=== PATIENT | female | born 1965 | race African-American/Black ===

== ENCOUNTER 2017-07-12 11:25 | Inpatient (IN) | payer MEDICAID ==
[~2017-07-12] VITALS: Ht 165.1 cm; Wt 117.1 kg
[2017-07-12] MEDS ORDERED: SODIUM CHLORIDE 0.9% 1,000 ML IV ONE ×2 (11:36→12:30)
[2017-07-12] MEDS ORDERED: FAMOTIDINE 20 MG/2 ML ONE (11:52)
[2017-07-12] MEDS ORDERED: SODIUM CHLORIDE 0.9% 1,000ML IVBOLUS ONE ×2 (12:00→12:30)
[2017-07-12] MEDS ORDERED: SODIUM CHLORIDE FLUSH 10ML SYR IVF ONE (12:00)
[2017-07-12] MEDS ORDERED: PLEASE ENTER HEIGHT AND WEIGHT MC SCH (12:00)
[2017-07-12] MEDS ORDERED: FAMOTIDINE 20 MG/2 ML IVP ONE (12:00)
[2017-07-12] MEDS ORDERED: PLEASE ENTER ALLERGIES MC SCH (12:00)
[2017-07-12 12:10] LABS: MEAN CORPUSCULAR HEMOGLOBIN 31.3 pg (27.0-34.8); MEAN CORPUSCULAR HGB CONC 33.9 g/dL (32.4-35.8); MEAN CORPUSCULAR VOLUME 92.4 fL (80-100); MEAN PLATELET VOLUME 11.2 fL (7.4-10.4); PLATELET COUNT 167 x10^3/uL (130-400); RED BLOOD COUNT 5.04 x10^6/uL (3.82-5.3); RED CELL DISTRIBUTION WIDTH 12.6 % (9.6-15.2)
[2017-07-12 12:17] LABS: ALANINE AMINOTRANSFERASE 54 U/L (12-78); ALBUMIN 3.9 g/dL (3.4-5.0); ANION GAP 10 mmol/L (5-15); CALCIUM 9.6 mg/dL (8.5-10.1); CHLORIDE 98 mmol/L (98-107); CREATININE 1.07 mg/dL (0.55-1.02)
[2017-07-12 12:21] LABS: ALKALINE PHOSPHATASE 106 U/L (45-117); BILIRUBIN,TOTAL 0.9 mg/dL (0.2-1.0); TROPONIN I < 0.015 ng/mL (0.000-0.045)
[2017-07-12 12:22] LABS: ACETONE, SERUM Negative (Negative)
[2017-07-12 12:26] LABS: MICROSCOPIC NOT IND
[2017-07-12 12:27] LABS: FREE T4 (FREE THYROXINE) 1.46 ng/dL (0.76-1.46)
[2017-07-12 12:28] LABS: CULTURE INDICATED? NO
[2017-07-12] MEDS ORDERED: INSULIN REGULAR 100 UNITS/ML, 3ML VIAL IVPush ONE (12:30)
[2017-07-12 12:44] LABS: MD YES
[2017-07-12 12:51] LABS: EOS#(MANUAL) 0.11 x10^3/uL (0.0-0.4); EOS% (MANUAL) 2 % (1-7); LYMPH#(MANUAL) 3.59 x10^3/uL (1-3.4); LYMPHS% (MANUAL) 63 % (22-44); MONOS#(MANUAL) 0.34 x10^3/uL (0.3-2.7); MONOS% (MANUAL) 6 % (2-9); REACTIVE LYMPHS % (MANUAL) 7 % (0-0); SEG#(MANUAL) 1.25 x10^3/uL (1.8-6.8); SEGS% (MANUAL) 22 % (42-75)
[2017-07-12 12:52] LABS: <PLATELET ESTIMATE> ADEQUATE; <RBC MORPHOLOGY> NORMAL; LARGE PLATELETS 2+
[2017-07-12] MEDS ORDERED: GABA400C PO (13:35)
[2017-07-12] MEDS ORDERED: GLYB2.5T2 PO (13:35)
[2017-07-12] MEDS ORDERED: INSULIN SC (13:35)
[2017-07-12 16:18] VITALS: BP 84/64
[2017-07-12 16:22] VITALS: BP 97/66
[2017-07-12] MEDS ORDERED: PNEUMOCOCCAL VACC.PER PHARMACY IM ONE (17:00)
[2017-07-12] MEDS: GABAPENTIN 400 MG CAPSULE PO SCH ×2 (18:00→20:12)
[2017-07-12] MEDS ORDERED: ENALAPRILAT 1.25 MG/ML, 2ML IVPush PRN (18:00)
[2017-07-12] MEDS ORDERED: PROMETHAZINE 25 MG/ML, 1ML IM PRN (18:00)
[2017-07-12] MEDS ORDERED: POLYETHYLENE GLYCOL 17 GM PACKET PO PRN (18:00)
[2017-07-12] MEDS ORDERED: BISACODYL 10 MG SUPP PR PRN (18:00)
[2017-07-12] MEDS ORDERED: morphine SULFATE 10 MG/ML, 1ML IVPush PRN (18:00)
[2017-07-12] MEDS ORDERED: ONDANSETRON ODT 4 MG PO PRN (18:00)
[2017-07-12] MEDS ORDERED: hydrALAzine 20 MG/ML, 1ML IVPush PRN (18:00)
[2017-07-12] MEDS ORDERED: ACETAMINOPHEN 325 MG TABLET PO PRN (18:00)
[2017-07-12] MEDS: INSULIN LISPRO 100 UNITS/ML, PEN SQ-INSULIN SCH ×2 (18:00→20:33)
[2017-07-12] MEDS ORDERED: ONDANSETRON 2MG/ML, 2ML IVPush PRN (18:00)
[2017-07-12 18:29] LABS: FREE T4 (FREE THYROXINE) 1.39 ng/dL (0.76-1.46)
[2017-07-12 18:55] LABS: HEMOGLOBIN A1C 12.5 % (4.2-6.3)
[2017-07-12 20:00] VITALS: BP 116/80
[2017-07-12] MEDS: NICOTINE 7 MG/24 HR PATCH.TD24 TD SCH (20:12)
[2017-07-12] MEDS: HEPARIN 5,000 UNITS/ML, 1ML SQ SCH (20:12)
[2017-07-12] MEDS: ASPIRIN 81 MG TABLET EC PO SCH (20:12)
[2017-07-12] MEDS: SODIUM CHLORIDE 0.9% 1,000 ML IV SCH (20:33)
[2017-07-12] MEDS: INSULIN GLARGINE 100 UNITS/ML, PEN SQ-INSULIN SCH (20:33)
[2017-07-12 22:30] LABS: TROPONIN I < 0.015 ng/mL (0.000-0.045)
[2017-07-13 01:36] VITALS: BP 116/80
[2017-07-13] MEDS: SODIUM CHLORIDE 0.9% 1,000 ML IV SCH ×2 (05:05→11:35)
[2017-07-13] MEDS: ASPIRIN 81 MG TABLET EC PO SCH (05:05)
[2017-07-13] MEDS: HEPARIN 5,000 UNITS/ML, 1ML SQ SCH ×3 (05:05→20:21)
[2017-07-13 05:14] LABS: MEAN CORPUSCULAR HEMOGLOBIN 31.8 pg (27.0-34.8); MEAN CORPUSCULAR HGB CONC 33.9 g/dL (32.4-35.8); MEAN CORPUSCULAR VOLUME 93.8 fL (80-100); MEAN PLATELET VOLUME 10.8 fL (7.4-10.4); PLATELET COUNT 145 x10^3/uL (130-400); RED BLOOD COUNT 4.41 x10^6/uL (3.82-5.3); RED CELL DISTRIBUTION WIDTH 12.2 % (9.6-15.2)
[2017-07-13 05:18] LABS: ALBUMIN 3.1 g/dL (3.4-5.0); ANION GAP 6 mmol/L (5-15); CALCIUM 8.3 mg/dL (8.5-10.1); CHLORIDE 106 mmol/L (98-107)
[2017-07-13 05:24] LABS: ALANINE AMINOTRANSFERASE 44 U/L (12-78); ALKALINE PHOSPHATASE 81 U/L (45-117); BILIRUBIN,TOTAL 0.8 mg/dL (0.2-1.0); CHOL/HDL RATIO 2.8; CHOLESTEROL, TOTAL 82 mg/dL (140-239); CREATININE 0.69 mg/dL (0.55-1.02); HDL CHOL % 35 % (28-40); HDL CHOLESTEROL (DIRECT) 29 mg/dL (40-60); LDL CHOLESTEROL,CALCULATED 37 mg/dL (54-169); LDL/HDL RATIO 1.3 (0.5-3.0); TOTAL PROTEIN 7.3 g/dL (6.4-8.2); TRIGLYCERIDES 79 mg/dL (50-200); TROPONIN I < 0.015 ng/mL (0.000-0.045); VLDL CHOLESTEROL 16 mg/dL (0-25)
[2017-07-13 06:16] LABS: MD YES
[2017-07-13 06:21] LABS: <PLATELET ESTIMATE> ADEQUATE; <RBC MORPHOLOGY> NORMAL; BASOS#(MANUAL) 0.05 x10^3/uL (0-0.1); BASOS% (MANUAL) 1 % (0-1); EOS#(MANUAL) 0.15 x10^3/uL (0.0-0.4); EOS% (MANUAL) 3 % (1-7); LARGE PLATELETS 1+; LYMPHS% (MANUAL) 60 % (22-44); MONOS#(MANUAL) 0.25 x10^3/uL (0.3-2.7); MONOS% (MANUAL) 5 % (2-9); SEG#(MANUAL) 1.55 x10^3/uL (1.8-6.8); SEGS% (MANUAL) 31 % (42-75)
[2017-07-13 07:51] VITALS: BP 130/81
[2017-07-13] MEDS: SENNA/DOCUSATE TABLET PO SCH (10:16)
[2017-07-13] MEDS: GABAPENTIN 400 MG CAPSULE PO SCH ×3 (10:16→20:20)
[2017-07-13] MEDS: INSULIN GLARGINE 100 UNITS/ML, PEN SQ-INSULIN SCH ×2 (10:17→20:34)
[2017-07-13] MEDS: INSULIN LISPRO 100 UNITS/ML, PEN SQ-INSULIN SCH ×4 (10:18→20:34)
[2017-07-13 14:00] VITALS: BP 106/70
[2017-07-13 20:00] VITALS: BP 120/77
[2017-07-13] MEDS: NICOTINE 7 MG/24 HR PATCH.TD24 TD SCH (20:30)
[2017-07-13] MEDS ORDERED: ATORVASTATIN 20 MG TABLET PO SCH (21:00)
[2017-07-14 02:00] VITALS: BP 112/81
[2017-07-14] MEDS: HEPARIN 5,000 UNITS/ML, 1ML SQ SCH ×2 (03:24→12:00)
[2017-07-14 04:57] LABS: MEAN CORPUSCULAR HEMOGLOBIN 31.7 pg (27.0-34.8); MEAN CORPUSCULAR HGB CONC 33.6 g/dL (32.4-35.8); MEAN CORPUSCULAR VOLUME 94.2 fL (80-100); MEAN PLATELET VOLUME 10.9 fL (7.4-10.4); PLATELET COUNT 149 x10^3/uL (130-400); RED BLOOD COUNT 4.32 x10^6/uL (3.82-5.3); RED CELL DISTRIBUTION WIDTH 12.8 % (9.6-15.2)
[2017-07-14 05:40] LABS: MD YES
[2017-07-14 05:43] LABS: EOS#(MANUAL) 0.18 x10^3/uL (0.0-0.4); EOS% (MANUAL) 4 % (1-7); LYMPH#(MANUAL) 2.94 x10^3/uL (1-3.4); LYMPHS% (MANUAL) 64 % (22-44); MONOS#(MANUAL) 0.28 x10^3/uL (0.3-2.7); MONOS% (MANUAL) 6 % (2-9); SEGS% (MANUAL) 26 % (42-75)
[2017-07-14 05:44] LABS: <PLATELET ESTIMATE> ADEQUATE; <RBC MORPHOLOGY> NORMAL; LARGE PLATELETS 1+
[2017-07-14] MEDS: ASPIRIN 81 MG TABLET EC PO SCH (05:44)
[2017-07-14 06:33] LABS: ANION GAP 6 mmol/L (5-15); CALCIUM 8.3 mg/dL (8.5-10.1); CHLORIDE 105 mmol/L (98-107)
[2017-07-14 07:33] VITALS: BP 108/71
[2017-07-14] MEDS: INSULIN LISPRO 100 UNITS/ML, PEN SQ-INSULIN SCH ×2 (08:30→11:42)
[2017-07-14] MEDS: GABAPENTIN 400 MG CAPSULE PO SCH (08:31)
[2017-07-14] MEDS: SENNA/DOCUSATE TABLET PO SCH (08:31)
[2017-07-14] MEDS: INSULIN GLARGINE 100 UNITS/ML, PEN SQ-INSULIN SCH (08:31)
[2017-07-14] MEDS ORDERED: ATOR20TA9 PO (13:38)
[2017-07-14] MEDS ORDERED: INSU100I13 SQ-INSULIN (13:38)
[2017-07-14] MEDS ORDERED: ASPI-621 PO (13:38)
[2017-07-14] MEDS ORDERED: INSU100I11 SQ-INSULIN (13:38)
[2017-07-14] MEDS ORDERED: NICO-485 TD (13:38)
[2017-07-14 15:23] VITALS: BP 119/86
== END 2017-07-14 16:38 | disposition home or self-care (01) | DRG 637 ==
LOC: ED 13:37 → EDIP 13:38 → ED 14:12 → 4NOR 16:00 → DCLOUNGE 07-14 15:43
PROVIDERS: ADMIT Internal Medicine; ATTEND Internal Medicine
DX: E11.65 Type 2 diabetes mellitus with hyperglycemia (principal); N17.0 Acute kidney failure with tubular necrosis; E87.1 Hypo-osmolality and hyponatremia; E87.2 Acidosis; E66.01 Morbid (severe) obesity due to excess calories; D72.820 Lymphocytosis (symptomatic); F17.210 Nicotine dependence, cigarettes, uncomplicated; F43.0 Acute stress reaction; G89.29 Other chronic pain; Z79.4 Long term (current) use of insulin; Z82.49 Family history of ischemic heart disease and other diseases of the circulatory system; Z83.3 Family history of diabetes mellitus; E11.40 Type 2 diabetes mellitus with diabetic neuropathy, unspecified; M54.9 Dorsalgia, unspecified
CPT/HCPCS: 36415; 71045; 78452; 80048; 80053; 80061; 81003; 82010; 82947; 82962; 83036; 83605; 83735; 84439; 84443; 84484; 85025; 93005; 93017; 96361; 96374; 96375; J1644; A9502; C9898; J1815; J7030; S0028

== ENCOUNTER 2017-09-04 11:19 | Emergency (ER) | payer MEDICAID ==
[~2017-09-04] VITALS: Ht 165.1 cm; Wt 107.0 kg
[~2017-09-04 11:19] MED LIST: ASPI-621 PO; ATOR20TA9 PO; GABA400C PO; GLYB2.5T2 PO; INSU100I11 SQ-INSULIN; INSU100I13 SQ-INSULIN; INSULIN SC; NICO-485 TD
[2017-09-04] MEDS ORDERED: SODIUM CHLORIDE 0.9% 1,000 ML IV ONE (11:29)
[2017-09-04] MEDS ORDERED: SODIUM CHLORIDE 0.9% 1,000ML IVBOLUS ONE (11:30)
[2017-09-04] MEDS ORDERED: SODIUM CHLORIDE FLUSH 10ML SYR IVF ONE (11:30)
[2017-09-04] MEDS ORDERED: ONDANSETRON ODT 4 MG PO ONE (11:30)
[2017-09-04] MEDS ORDERED: ONDANSETRON ODT 4 MG ONE (11:42)
[2017-09-04 11:50] LABS: BASOPHILS # (AUTO) 0.02 x10^3/uL (0-0.1); BASOPHILS % (AUTO) 0 % (0-1); EOSINOPHILS # (AUTO) 0.06 x10^3/uL (0-0.4); EOSINOPHILS % (AUTO) 1 % (1-7); LYMPHOCYTES # (AUTO) 1.76 x10^3/uL (1-3.4); LYMPHOCYTES % (AUTO) 26 % (22-44); MD NO; MEAN CORPUSCULAR VOLUME 93.9 fL (80-100); MEAN PLATELET VOLUME 9.9 fL (7.4-10.4); MONOCYTES # (AUTO) 0.21 x10^3/uL (0.2-0.8); MONOCYTES % (AUTO) 3 % (2-9); NEUTROPHILS # (AUTO) 4.79 x10^3/uL (1.8-6.8); NEUTROPHILS % (AUTO) 70 % (42-75); PLATELET COUNT 163 x10^3/uL (130-400); RED BLOOD COUNT 5.35 x10^6/uL (3.82-5.3); RED CELL DISTRIBUTION WIDTH 12.8 % (9.6-15.2)
[2017-09-04 11:58] LABS: ALBUMIN 3.6 g/dL (3.4-5.0); ANION GAP 6 mmol/L (5-15); CALCIUM 9.2 mg/dL (8.5-10.1); CHLORIDE 103 mmol/L (98-107); CREATININE 0.91 mg/dL (0.55-1.02)
[2017-09-04 12:03] LABS: ALANINE AMINOTRANSFERASE 116 U/L (12-78); ALKALINE PHOSPHATASE 106 U/L (45-117); BILIRUBIN,TOTAL 0.6 mg/dL (0.2-1.0); TOTAL PROTEIN 9.2 g/dL (6.4-8.2)
[2017-09-04 12:20] LABS: TROPONIN I < 0.015 ng/mL (0.000-0.045)
[2017-09-04] MEDS ORDERED: OMNIPAQUE 350 MG/ML, 100ML BOTTLE ONE (12:44)
[2017-09-04 12:56] VITALS: BP 162/100
[2017-09-04 13:38] LABS: MICROSCOPIC NOT IND
[2017-09-04 13:39] LABS: CULTURE INDICATED? NO
== END 2017-09-04 14:39 | disposition home or self-care (01) ==
LOC: ED 13:47
DX: R10.84 Generalized abdominal pain (principal); I10 Essential (primary) hypertension; R07.89 Other chest pain; E11.65 Type 2 diabetes mellitus with hyperglycemia; R11.2 Nausea with vomiting, unspecified; Z91.14 Patient's other noncompliance with medication regimen; Z72.9 Problem related to lifestyle, unspecified; R35.0 Frequency of micturition
CPT/HCPCS: 36415; 71275; 74177; 80053; 81003; 83605; 83690; 83880; 84484; 85025; 93005; 96360; 99285; J7030; Q0162; Q9967